=== PATIENT | male | born 1975 | race African-American/Black ===

== ENCOUNTER 2018-03-08 12:19 | Emergency (ER) | payer SELFPAY ==
[~2018-03-08] VITALS: Ht 175.3 cm; Wt 80.0 kg
[2018-03-08] MEDS ORDERED: LORAZEPAM 1MG TABLET PO ONE (13:15)
[2018-03-08 13:43] VITALS: BP 141/92
== END 2018-03-08 13:45 | disposition home or self-care (01) ==
LOC: EDBD → ER 13:01
DX: F41.9 Anxiety disorder, unspecified (principal); F17.210 Nicotine dependence, cigarettes, uncomplicated; F12.90 Cannabis use, unspecified, uncomplicated
CPT/HCPCS: 99284

== ENCOUNTER 2018-03-13 20:19 | Emergency (ER) | payer OTHER ==
[~2018-03-13] VITALS: Ht 190.5 cm; Wt 109.0 kg
[2018-03-13 23:45] LABS: BASOPHILS % 0.5 % (0.0-2.0); HEMATOCRIT. 43.2 % (42.0-52.0); HEMOGLOBIN. 14.1 g/dL (14.0-18.0); LYMPHOCYTES % 23.2 % (20.0-50.0); MEAN CORPUSCULAR VOLUME 79.4 fL (80.0-94.0); MEAN PLATELET VOLUME 8.8 fl (7.4-10.4); MONOCYTES % 9.4 % (2.0-8.0); NEUTROPHILS % 65.9 % (40.0-76.0); PLATELET 225 x1000/uL (130-400); RED BLOOD CELL COUNT 5.45 mill/uL (4.7-6.1); RED CELL DISTRIBUTION WIDTH 14.6 % (11.6-14.6)
[2018-03-13 23:49] LABS: INR 1.1; PROTHROMBIN TIME 10.6 sec (9.1-11.1)
[2018-03-13 23:58] LABS: CHLORIDE 104 mEq/L (98-107)
[2018-03-14 00:03] LABS: ETHANOL BLOOD < 10 mg/dL
[2018-03-14 01:04] VITALS: BP 154/87
== END 2018-03-14 01:06 | disposition home or self-care (01) ==
LOC: ER 20:19
DX: R07.9 Chest pain, unspecified (principal); F16.10 Hallucinogen abuse, uncomplicated; J45.909 Unspecified asthma, uncomplicated; F32.9 Major depressive disorder, single episode, unspecified; I10 Essential (primary) hypertension; F17.200 Nicotine dependence, unspecified, uncomplicated; Z86.73 Personal history of transient ischemic attack (TIA), and cerebral infarction without residual deficits
CPT/HCPCS: 36415; 71045; 80053; 83880; 84484; 85025; 85610; 93005; 99284; G0482